=== PATIENT | female | born 1950 | race Caucasian/White ===

== ENCOUNTER 2019-04-09 10:47 | Emergency (ER) | payer MEDICAID, MEDICARE ==
[~2019-04-09] VITALS: Ht 154.9 cm; Wt 59.1 kg
[2019-04-09 10:47] VITALS: BP 134/83
[2019-04-09] MEDS ORDERED: BENA25CA4 PO (11:45)
[2019-04-09] MEDS ORDERED: PRED20TA PO (11:45)
== END 2019-04-09 11:57 | disposition home or self-care (01) ==
LOC: M ED 10:47
DX: L23.7 Allergic contact dermatitis due to plants, except food (principal); F17.210 Nicotine dependence, cigarettes, uncomplicated